=== PATIENT | male | born 1990 ===

== ENCOUNTER 2022-06-24 15:09 | Emergency (ER) | payer MEDICAID, SELFPAY ==
[2022-06-24 15:20] VITALS: BP 131/91; PULSE 73; RESP 18; TEMP 36.9; O2SAT 100
--- NOTE | 2022-06-24 16:00 | DI.CT_ITS ---
Exam(s) CT HEAD WO EXAM: CT HEAD WO CLINICAL HISTORY: trauma head injury. TECHNIQUE: Imaging Protocol: Axial computed tomography images with coronal and sagittal reformatted images were created and reviewed COMPARISON: No exams were available for comparison FINDINGS: The ventricular system is normal in appearance. No evidence of acute intracranial hemorrhage, mass effect, or midline shift. The orbital structures are unremarkable. The temporal bone structures appear intact. Calvarium: Normal. Visualized Paranasal sinuses/Mastoids: Clear. IMPRESSION: Normal cranial CT. RADIATION DOSE DELIVERED: 794.11mGy.cm Total DLP 794.11mGy.cm Total DLP !Error CTDIvol DATA REPOSITORY: All CT scans at this facility are submitted to the National Radiology Data Registry (NRDR) Dose Index Registry (DIR) with the [employer] ([employer]). RADIATION OPTIMIZATION: All CT scans at this facility use at least one of these dose optimization te chniques: automated exposure control; mA and/or kV adjustment per patient size (includes targeted exa ms where dose is matched to clinical indication); or iterative reconstruction.
--- NOTE | 2022-06-24 16:33 | ED.GENADUL_ITS ---
Discharge Plan Disposition Patient Disposition: HOME Condition: Improving Discharge Details Clinical Impression: Post-concussion syndrome Primary Care Provider: Unknown,Unknown ED Provider: Lance Santana Home Meds and New Rx's Prescriptions: No Action No Known Home Meds Discharge Instructions Instructions: Post Concussion Syndrome (ED) Additional Instructions: It is very important that you stay well-hydrated and take [id number] pain medication as needed for discomfort. You should rest over the next 4 days and slowly increase activity as tolerated. If you are having any significant or severe worsening of symptoms please return to the emergency department but it can be very common to have intermittent symptoms especially with increased of activity. Feel free to follow-up with primary care provider if not improving in the next 1 to 2 weeks. Stand Alone Forms: Work Release Referrals: Primary Care Provider [Outside] (As needed for reassessment) Discharge Data Discharge Date/Time-TO BE ENTERED AT DEPARTURE: 06/24/22 18:51 Medical Decision Making Patient presenting to the emergency department for chief complaint of nausea and dizziness with slight headache. 5 days ago patient suffered a concussion due to hitting the right side of his head against a metal pole. He was seen in urgent care 2 days after initial injury and diagnosed with concussion with no imaging. He states over the last couple days he has noted worsening dizziness with movement, persistent headache, irritability, and some nausea without vomiting. Physical exam is unremarkable beyond some mild right-sided scalp tenderness. Patient has no significant pertinent past medical history. Given worsening symptoms after head injury differential diagnosis to include intercranial abnormality including potential hemorrhage vs postconcussive syndrome. Discussed with patient risk versus benefit of CT imaging of the head versus further monitoring. After discussion we will plan on imaging head and will treat patient's symptoms pending results. Review of radiological imaging is unremarkable for any acute findings. Patient reassessed and does state marked improvement of symptoms. Thoroughly discussed with the patient standard concussion care and that rest more physical and mental is very important for healing and recovery. Did discuss the potential duration of symptoms for postconcussive syndrome and return and follow-up precautions. Will send patient home with limited supply of Zofran and recommend use of [id number] medications for any return of headache. After discussion of diagnosis and plan of care patient has no further needs, questions, or concerns and states clear understanding to return to the emergency department for any worsening symptoms. This documentation was generated using [employer] system, please disregard any oddities of phrase or misspellings. HPI General Mode of arrival: ambulatory . Date/Time Provider Initiated Documentation: 06/24/22 15:39 . Limitations to Documentation: no limitations . Information obtained by: patient and RN notes reviewed . History of Present Illness 31 year old M presents to the emergency department with the chief complaint of Headache nausea vomiting photophobia, described as moderate, with intensity rated at 4. Quality is described as aching, and is localized to the head. Patient reports no radiation. Patient started experiencing this day(s) (5) and it has been constant and intermittent. No relieving factors improve symptom(s), Other factors that worsen symptoms (activity) . Patient notes headaches; denies fever/chills, shortness of breath, syncope and weakness. Patient did receive the following treatments prior to arrival, none Related Data Home Medications Medication Instructions Recorded Confirmed Unknown [No Known Home Meds] 06/24/22 06/24/22 Allergies Allergy/AdvReac Type Severity Reaction Status Date / Time No Known Allergies Allergy Unverified 06/24/22 15:24 General Stated Complaint: Dizzy/Sync JUAN: 4 Review of Systems Constitutional Constitutional: Denies body ache(s), Denies chills, Denies fever(s), Reports headache(s) and Reports malaise Eyes Eyes: Denies change in vision and Reports photophobia ENT Ears, Nose, Mouth, and Throat: Denies dizziness, Denies facial pain, Reports headache(s) and Denies neck pain Cardiovascular Cardiovascular: Denies chest pain, Denies syncope and Denies dyspnea Respiratory Respiratory: Denies pain on inspiration and Denies dyspnea Gastrointestinal Gastrointestinal: Denies abdominal pain, Reports nausea and Denies vomiting Musculoskeletal Musculoskeletal: Denies neck pain Neurologic Neurologic: Reports as per HPI, Denies dizziness, Denies syncope, Reports headache(s), Denies localized weakness, Denies sensory deficit and Denies paresthesias Psychiatric Psychiatric: Reports anxiety and Reports irritability PFSH All Active Problems (Updated 06/24/22 @ 18:19 by Lance Santana NP) Post-concussion syndrome (Acute) Social History Smoking/Tobacco Use Status: Current every day Tobacco Type: cigarettes Smoking risk assessment performed?: Yes Alcohol Intake: current Alcohol Intake frequency: a few times a week Drug use: Never Substance use type: does not use Do you feel safe at home: Yes Do you feel safe in your relationship?: Yes Exam Const General: cooperative, healthy appearing, no acute distress and well groomed Orientation: alert, awake and oriented x3 [facility] Head: normal to inspection Ears: hearing grossly normal bilaterally and TM's normal bilaterally Mouth: oral mucosae normal and moist mucous membranes Throat: posterior oropharynx normal Eyes Visual Medley: normal visual medley by confrontation Alignment and Position: alignment normal Periorbital: periorbital findings normal Eyelids: eyelids normal Sclera: sclerae normal Pupils: PERRL EOM: EOM intact bilaterally Neck Neck: normal visual inspection, full ROM and no meningeal signs Resp Effort & Inspection: normal respiratory effort and able to speak in complete sentences Auscultation: clear to auscultation bilaterally Cardio Rate: regular rate Rhythm: regular rhythm Heart Sounds: S1 normal and S2 normal Neuro General: patient alert, patient awake, patient oriented x3, gait normal, tone normal, moves all extremities, CN's II-XI intact bilaterally and not confused Cognition: normal cognition Speech: speech normal Motor: muscle tone normal throughout, strength 5/5 throughout, no pronator drift, no movement abnormalities noted and no fasciculations Sensory Exam: no sensory deficits noted Coordination: Romberg test normal and Does not sway with eyes open Course Vital Signs Vital signs: Vital Signs Temperature 36.9 C 06/24/22 15:20 Pulse 73 06/24/22 15:20 Respiratory Rate 18 06/24/22 15:20 Blood Pressure 131/91 H 06/24/22 15:20 Pulse Oximetry 100 06/24/22 15:20 Temperature 36.9 C 06/24/22 15:20 Temperature Source Temporal Artery Scan 06/24/22 15:20 Pulse 73 06/24/22 15:20 Respiratory Rate 18 06/24/22 15:20 Respiratory Effort Non-Labored 06/24/22 15:25 Blood Pressure 131/91 H 06/24/22 15:20 Blood Pressure Position Sitting 06/24/22 15:20 Pulse Oximetry 100 06/24/22 15:20 Oxygen Delivery Method Room Air 06/24/22 15:20 Oxygen Flow Rate 0 06/24/22 15:20 Lab/Test Results Lab/Test Results: Laboratory Tests Range/Units 06/24/22 06/24/22 16:01 16:01 WBC Cancelled RBC Cancelled Hgb Cancelled Hct Cancelled MCV Cancelled MCH Cancelled MCHC Cancelled RDW Cancelled Plt Count Cancelled MPV Cancelled Immature Gran % Cancelled Neutrophils % Cancelled Band Neutrophils % Cancelled Lymphocytes % Cancelled Atypical Lymphs % Cancelled Monocytes % Cancelled Eosinophils % Cancelled Basophils % Cancelled Metamyelocytes % Cancelled Myelocytes % Cancelled Promyelocytes % Cancelled Other Cells % Cancelled Nucleated RBC % Cancelled Absolute Neutrophils Cancelled Absolute Lymphocytes Cancelled Absolute Monocytes Cancelled Absolute Eosinophils Cancelled Absolute Basophils Cancelled RBC Morphology Cancelled Polychromasia Cancelled Hypochromasia Cancelled Poikilocytosis Cancelled Basophilic Stippling Cancelled Anisocytosis Cancelled Microcytosis Cancelled Macrocytosis Cancelled Spherocytes Cancelled Tear Drop Cells Cancelled Ovalocytes Cancelled Stomatocytes Cancelled [place] Bodies Cancelled [place] Cells/Echinocytes Cancelled Acanthocytes (Spur) Cancelled Schistocytes Cancelled Sodium Cancelled Potassium Cancelled Chloride Cancelled Carbon Dioxide Cancelled Anion Gap Cancelled BUN Cancelled Creatinine Cancelled Estimated GFR/1.73 m2 Cancelled Glucose Cancelled Calcium Cancelled Magnesium Cancelled Total Bilirubin Cancelled AST Cancelled ALT Cancelled Alkaline Phosphatase Cancelled Total Protein Cancelled Albumin Cancelled PAWSS Have you Been Recently Intoxicated or Drunk Within the Last 30 days?: No Have you Ever Experienced Previous Episodes of Alcohol Withdrawal?: No Have you ever Experienced Withdrawal Seizures?: No Have you ever Experienced Delirium Tremens(DT)s?: No Have you ever undergone Alcohol Rehabilitation Treatment (i.e, inpt ot outpatient treatment programs)?: No Have you ever Experienced Blackouts?: No Have you ever Combined Alcohol with other Downers within the last 90 days?: No Have you ever Combined Alcohol with any other Substance of Abuse during the last 90 days?: No Positive Blood Alcohol level on Presentation? [PCS.BAL]: No Evidence of Increased Autonomic Activity (i.e. HR>120, tremor, sweating, agitation, nausea)?: No Result: 0
--- NOTE | 2022-06-24 17:19 | DI.VRAD_ITS ---
PROCEDURE INFORMATION: Exam: CT Head Without Contrast Exam date and time: 06/24/2022 4:47 PM Age: 31 years old Clinical indication: Other: Trauma head injury TECHNIQUE: Imaging protocol: Computed tomography of the head without contrast. Radiation optimization: All CT scans at this facility use at least one of these dose optimization techniques: automated exposure control; mA and/or kV adjustment per patient size (includes targeted exams where dose is matched to clinical indication); or iterative reconstruction. COMPARISON: No relevant prior studies available. FINDINGS: Brain: Ventricles, sulci are within normal limits. There is no evidence of acute hemorrhage, mass or shift. There is no evidence of an acute cortical or major vascular territory infarct. No abnormal extra-axial collections are identified. Cerebral ventricles: No significant ventricular enlargement/hydrocephalus. Paranasal sinuses: No significant sinus opacification or fluid level Mastoid air cells: No significant mastoid opacification Bones/joints: There is no acute bony abnormality Soft tissues: Subcutaneous soft tissues are unremarkable IMPRESSION: No acute findings. Dictated and Authenticated by: Vandana Gaviria MD. Ordering:NELLA Lucas MD
[2022-06-24 17:30] VITALS: TEMP 36.6
[2022-06-24] MEDS: Ketorolac 30 MG/ML VIAL IVP (17:30)
[2022-06-24] MEDS: Ondansetron 4 MG/2 ML VIAL IVP (17:31)
[2022-06-24] MEDS: Normal Saline 1,000 ML 1000 ML IV (17:31)
[2022-06-24 18:45] VITALS: BP 119/69; PULSE 57; RESP 18; TEMP 36.6; O2SAT 100
== END 2022-06-24 18:51 | disposition home or self-care (01) ==
PROVIDERS: Emergency Provider Nurse Practitioner Family
DX: F07.81 Postconcussional syndrome (principal); F17.210 Nicotine dependence, cigarettes, uncomplicated
CPT/HCPCS: 36415; 80053; 96361; 96374; 96375; 99284; 70450; 83735; 85025; J1885; J2405

== ENCOUNTER 2023-06-26 04:53 | Outpatient (CLI) | payer MEDICAID, SELFPAY ==
[2023-06-27 11:28] LABS: Lyme Ab w Rflx to Lyme Confirm Negative (Negative)
[2023-06-29 10:52] LABS: Anaplasma phagocytophilum Negative (Negative); B. miyamotoi PCR Negative (Negative); Babesia divergens/MO-1 Negative (Negative); Babesia duncani Negative (Negative); Babesia microti Negative (Negative); Ehrlichia chaffeensis Negative (Negative); Ehrlichia ewingii/canis Negative (Negative); Ehrlichia muris eauclairensis Negative (Negative)
== END 2023-06-26 04:54 | disposition home or self-care (01) ==
PROVIDERS: Visit Provider Nurse Practitioner Family
DX: T14.8XXA Other injury of unspecified body region, initial encounter (principal); W57.XXXA Bitten or stung by nonvenomous insect and other nonvenomous arthropods, initial encounter; R53.83 Other fatigue; R42 Dizziness and giddiness
CPT/HCPCS: 36415; 87798; 86618